=== PATIENT | female | born 1995 | race Caucasian/White ===

== ENCOUNTER 2017-06-24 21:23 | Emergency (ER) | payer OTHER ==
[~2017-06-24] VITALS: Ht 167.6 cm; Wt 75.2 kg
[~2017-06-24 21:23] MED LIST: FERR240T9 PO; PREN-39 PO
[2017-06-24 21:28] VITALS: Ht 167.6 cm; Wt 75.2 kg
--- NOTE | 2017-06-24 22:10 | ERD ---
ER Documentation Chief Complaint Chief Complaint 3 wks , vag bleeding today, pelvic pain HPI 22-year-old female, at approximately 8 weeks by uncertain LMP 04/29/17, presents to the emergency department complaining of 1 day of mild vaginal spotting. Denies abdominal pain, no dysuria, no history of trauma. No care, history provided by patient. ROS SYSTEMIC symptoms: no fever, chills, no night sweats, no weight loss EYE symptoms: No blurred vision, no eye discharge OTOLARYNGEAL symptoms: No hearing loss. No ear pain, no sore throat CARDIOVASCULAR symptoms: No chest pain or discomfort, no palpitations. PULMONARY symptoms: No dyspnea, no cough, no wheezing. GASTROINTESTINAL symptoms: No abdominal pain, no nausea, no vomiting, no diarrhea MUSCULOSKELETAL symptoms: No arthralgias, no muscle aches. NEUROLOGY symptoms: No confusion, no syncope, no numbness or tingling. SKIN: No rashes Medications Home Meds Active Scripts Nitrofurantoin Monohyd Macrocr* (Macrobid*) 100 Mg Capsr, 100 MG PO BID for 7 Days, CAP Prov:KENDRA CARVAJAL MD 06/24/17 Reported Medications Vits W-Ca,Fe,Fa(<1MG) ( Vitamins) 1 Tab Tablet, 1 TAB PO DAILY 09/02/14 Ferrous Gluconate (Iron) 1 Tab Tablet, 1 TAB PO DAILY 09/02/14 Allergies Allergies: Coded Allergies: No Known Drug Allergies (Verified Allergy, Unknown, 10/04/14) PMhx/Soc History of Surgery: No Anesthesia Reaction: No Hx Neurological Disorder: No Hx Respiratory Disorders: No Hx Cardiac Disorders: No Hx Psychiatric Problems: No Hx Miscellaneous Medical Probl: No Hx Alcohol Use: No Hx Substance Use: No Hx Tobacco Use: No Smoking Status: Never smoker Physical Exam Vitals Vital Signs Date Time Temp Pulse Resp B/P Pulse Ox O2 Delivery O2 Flow Rate FiO2 06/24/17 21:28 97.8 81 20 123/72 98 Physical Exam Patient is in no acute distress, vital signs stable. Alert and fully oriented. EYES: PERRLA, EOMI, Sclera and conjunctiva appear normal. EARS: Canals clear, tympanic membranes WNL THROAT: Normal oropharynx. NECK: Supple, No lymphadenopathy. Full ROM without pain or tenderness. HEART: RRR, no rubs, murmurs, clicks or gallops. LUNGS: Clear to auscultation. ABDOMEN: Soft, non-tender without masses or hepatosplenomegaly. EXTREMITIES: No edema bilaterally. BACK: Full ROM, no deformity, normal back exam NEURO: Cranial nerves grossly intact, no motor or sensory deficit Result Diagram: 06/24/172219 Results 24 hrs Laboratory Tests Test 06/24/17 22:02 06/24/17 22:20 Urine Color YELLOW Urine Clarity CLEAR Urine pH 5.0 Urine Specific [place] 1.035 Urine Ketones TRACEmg/dL Urine Nitrite POSITIVEmg/dL Urine Bilirubin NEGATIVEmg/dL Urine Urobilinogen 2+mg/dL Urine Leukocyte Esterase TRACELeu/ul Urine Microscopic RBC 4/HPF Urine Microscopic WBC 2/HPF Urine Squamous Epithelial Cells FEW/HPF Urine Bacteria MANY/HPF Urine Mucus MODERATE/HPF Urine Hemoglobin 2+mg/dL Urine Glucose NEGATIVEmg/dL Urine Total Protein NEGATIVEmg/dl White Blood Count 11.210^3/ul Red Blood Count 4.5410^6/ul Hemoglobin 12.9g/dl Hematocrit 37.6% Mean Corpuscular Volume 82.8fl Mean Corpuscular Hemoglobin 28.4pg Mean Corpuscular Hemoglobin Concent 34.3g/dl Red Cell Distribution Width 13.3% Platelet Count 72443^3/UL Mean Platelet Volume 10.1fl Neutrophils % 63.0% Lymphocytes % 28.9% Monocytes % 6.5% Eosinophils % 0.9% Basophils % 0.4% Nucleated Red Blood Cells % 0.0/100WBC Neutrophils # 7.110^3/ul Lymphocytes # 3.310^3/ul Monocytes # 0.710^3/ul Eosinophils # 0.110^3/ul Basophils # 0.010^3/ul Nucleated Red Blood Cells # 0.010^3/ul Beta HCG, Quantitative 22981.0mIU/ml [place] [address] Radiology Main Line: [phone] DIAGNOSTIC IMAGING REPORT Patient: ASHISH SHUKLA : 1995 Age: 22 Sex: F MR #: [id number] DOS: 06/24/172204 Ordering MD: KENDRA CARVAJAL MD Location: [facility] Room/Bed: PROCEDURE: US OB. CLINICAL INDICATION: Vaginal bleeding. Positive TECHNIQUE: Transabdominal and transvaginal views of the pelvis are available for review. COMPARISON: No relevant prior studies are available for comparison. FINDINGS: Uterus: No evidence of masses and normal in size. Endometrial cavity: Intrauterine gestational sac, yolk sac and pole are present with the following information: [place]-rump length: 0.60 cm heart rate: 129 bpm Gestational sac: 2.19 cm Ultrasound estimated gestational age: 6 weeks 5 days No evidence of subchorionic hemorrhage Right ovary/adnexa: The ovary is not visualized. There is no evidence of adnexal mass or free fluid. Left ovary/adnexa: Ovarian size normal estimated at 4 x 2.7 x 2.6 cm. Likely a corpus luteum cyst with internal debris or hemorrhage is estimated at 1.7 x 1.5 cm. No adnexal mass lesion is seen. Cul-de-sac: There is no free fluid. RPTAT:HJJR IMPRESSION: 1. Single viable intrauterine with an estimated gestational age of 6 weeks 5 days, the estimated date of delivery 02/12/2018. 2. No evidence of subchorionic hemorrhage to explain the provided history. Physician Randy Date Time Electronically viewed and signed by Seoku Frank Physician on 06/24/2017 23:21 JR/ CC: KENDRA CARVAJAL MD Procedures/MDM 22y/o female patient at approximately 8 weeks weeks per last menstrual period, presents to the ED c/o vaginal spotting for 1 day. Vital signs stable, Physical exam unremarkable. Differential diagnosis include but not limited to: UTI, threatening , incomplete versus complete , ectopic , physiologic implantation bleeding, molar . Pertinent Data: Labs: CBC: normal UA: Nitrates (+) OB US: 1. Single viable intrauterine with an estimated gestational age of 6 weeks 5 days, the estimated date of delivery 02/12/2018. 2. No evidence of subchorionic hemorrhage to explain the provided history. Physical examination and clinical presentation most likely consistent with UTI and threatening . During the ED course the patient remained hemodynamically stable and asymptomatic. Results and clinical impression discussed with patient who agrees with management. The patient is stable to be treated outpatient and will be discharged home with close monitoring and follow-up in 2 days with her primary physician. Bed rest and pelvic rest recommended until further medical evaluation. The patient was instructed regarding the outcomes and the potential complications like severe bleeding and . If the patient presents severe bleeding or pain, she was instructed to return to the hospital immediately. Disclaimer: Inadvertent spelling and grammatical errors are likely due to EHR/ dictation software use and do not reflect on the overall quality of patient care. Also, please note that the electronic time recorded on this note does not necessarily reflect the actual time of the patient encounter. Departure Diagnosis: Primary Impression: Vaginal bleeding in patient at less than 20 weeks gestation Additional Impression: UTI (urinary tract infection) Condition: Stable Additional Instructions: Call your primary care doctor TOMORROW for an appointment during the next 1-2 days. See the doctor sooner or return here if your condition worsens before your appointment time. Thank you very much for allowing us to participate in your care. Your health and safety is our top priority at [facility]. Have prescriptions filled and follow precisely the directions on the label. Follow-up with primary care provider during the next 4 days and bring all the information and medications prescribed. If illness has not improved in 2 days, then make an appointment with primary care provider. If the provider is unavailable, return to the Emergency Department immediately. KENDRA CARVAJAL MD Jun 24, 2017 22:10
[2017-06-24 22:53] LABS: BASOPHILS % 0.4 % (0.0-2.0); EOSINOPHILS # 0.1 10^3/ul (0.0-0.5); EOSINOPHILS % 0.9 % (0.0-7.0); HEMATOCRIT 37.6 % (37.0-47.0); HEMOGLOBIN 12.9 g/dl (12.0-16.0); LYMPHOCYTES # 3.3 10^3/ul (0.8-2.9); LYMPHOCYTES % 28.9 % (15.0-51.0); MEAN CORPUSCULAR HEMOGLOBIN 28.4 pg (29.0-33.0); MEAN CORPUSCULAR HGB CONC 34.3 g/dl (32.0-37.0); MEAN CORPUSCULAR VOLUME 82.8 fl (82.0-101.0); MEAN PLATELET VOLUME 10.1 fl (7.4-10.4); MONOCYTE # 0.7 10^3/ul (0.3-0.9); MONOCYTES % 6.5 % (0.0-11.0); NEUTROPHIL # 7.1 10^3/ul (1.6-7.5); PLATELET COUNT 316 10^3/UL (140-415); RED BLOOD COUNT 4.54 10^6/ul (4.20-5.40); RED CELL DISTRIBUTION WIDTH 13.3 % (11.5-14.5); WHITE BLOOD COUNT 11.2 10^3/ul (4.8-10.8)
[2017-06-24 23:03] LABS: ADD UMIC YES; UR ASCORBIC ACID NEGATIVE (NEGATIVE); UR BACTERIA MANY /HPF (NONE SEEN); UR BILIRUBIN (Dip) NEGATIVE (NEGATIVE); UR BLOOD (Dip) 2+ mg/dL (NEGATIVE); UR CLARITY CLEAR (CLEAR); UR COLOR YELLOW (YELLOW); UR GLUCOSE (Dip) NEGATIVE (NEGATIVE); UR KETONES (Dip) TRACE mg/dL (NEGATIVE); UR LEUKOCYTE ESTERASE (Dip) TRACE Leu/ul (NEGATIVE); UR MUCUS MODERATE /HPF (NONE SEEN); UR NITRITE (Dip) POSITIVE (NEGATIVE); UR RBC 4 /HPF (0-5); UR SPECIFIC GRAVITY (Dip) 1.035 (1.003-1.030); UR SQUAMOUS EPITHELIAL CELL FEW /HPF (FEW); UR TOTAL PROTEIN (Dip) NEGATIVE (NEGATIVE); UR UROBILINOGEN (Dip) 2+ mg/dL (NEGATIVE)
[2017-06-24] MEDS ORDERED: NITR-58 PO (23:20)
--- NOTE | 2017-06-24 23:21 | RADRPT ---
PROCEDURE: US OB. CLINICAL INDICATION: Vaginal bleeding. Positive TECHNIQUE: Transabdominal and transvaginal views of the pelvis are available for review. COMPARISON: No relevant prior studies are available for comparison. FINDINGS: Uterus: No evidence of masses and normal in size. Endometrial cavity: Intrauterine gestational sac, yolk sac and pole are present with the foll owing information: [place]-rump length:0.60 cm heart rate:129 bpm Gestational sac:2.19 cm Ultrasound estimated gestational age:6 weeks 5 days No evidence of subchorionic hemorrhage Right ovary/adnexa: The ovary is not visualized. There is no evidence of adnexal mass or free flui d. Left ovary/adnexa: Ovarian size normal estimated at 4 x 2.7 x 2.6 cm. Likely a corpus luteum cyst w ith internal debris or hemorrhage is estimated at 1.7 x 1.5 cm. No adnexal mass lesion is seen. Cul-de-sac: There is no free fluid. RPTAT:HJJR IMPRESSION: 1. Single viable intrauterine with an estimated gestational age of 6 weeks 5 days, the es timated date of delivery 02/12/2018. 2. No evidence of subchorionic hemorrhage to explain the provided history. Physician Randy Date Time Electronically viewed and signed by Physician Randy on 06/24/2017 23:21 /
== END 2017-06-25 00:01 | disposition home or self-care (01) ==
LOC: FTE 21:23
DX: O20.9 Hemorrhage in early pregnancy, unspecified (principal); O23.41 Unspecified infection of urinary tract in pregnancy, first trimester; R10.2 Pelvic and perineal pain; Z3A.01 Less than 8 weeks gestation of pregnancy
CPT/HCPCS: 36415; 76801; 76817; 81001; 84702; 85025; 86900; 86901; 87086; Z7502

== ENCOUNTER 2017-11-19 11:48 | Outpatient (CLI) | END 2017-11-19 16:12 | disposition home or self-care (01) ==

== ENCOUNTER 2017-11-21 12:56 | Outpatient (CLI) | END 2017-11-21 14:55 | disposition home or self-care (01) ==

== ENCOUNTER 2017-11-22 15:20 | Inpatient (IN) | END 2017-11-25 11:50 | disposition home or self-care (01) | DRG 782 ==

== ENCOUNTER 2018-01-04 07:32 | Outpatient (CLI) | END 2018-01-04 09:59 | disposition home or self-care (01) ==

== ENCOUNTER → 2018-01-27 | Outpatient (CLI) | END | disposition home or self-care (01) ==

== ENCOUNTER 2018-01-29 13:02 | Inpatient (IN) | END 2018-01-31 14:30 | disposition home or self-care (01) | DRG 775 ==

== ENCOUNTER 2018-12-04 19:02 | Emergency (ER) | payer OTHER ==
[~2018-12-04] VITALS: Ht 170.2 cm; Wt 83.3 kg
[2018-12-04 19:15] VITALS: BP 140/70; PULSE 5; RESP 18; Ht 170.2 cm; Wt 83.3 kg
--- NOTE | 2018-12-04 20:25 | ERD ---
ER Documentation Chief Complaint Chief Complaint headache/cough/runny nose x 1 week HPI 23-year-old female, presents to the emergency department, complaining of 1 week with worsening of nasal congestion, frontal sinus pressure, dental pain and subjective fever. The patient reports upper respiratory symptoms for more than 4 weeks. She has been taking knbe-uwe-zxdopiy medication without improvement of the symptoms. ROS All systems reviewed and are negative except as per history of present illness. Medications Home Meds Active Scripts Promethazine Hcl* (Promethazine Hcl* Syrup) 6.25 Mg/5 Ml Syrup, 6.25 MG PO Q6H PRN for COUGH, #60 ML Prov:KENDRA CARVAJAL MD 12/04/18 Ibuprofen* (Motrin*) 600 Mg Tab, 600 MG PO Q8, #20 TAB Prov:KENDAR CARVAJAL MD 12/04/18 Amoxicillin* (Amoxicillin*) 500 Mg Cap, 500 MG PO TID for 10 Days, CAP Prov:KENDRA CARVAJAL MD 12/04/18 Allergies Allergies: Coded Allergies: No Known Drug Allergies (Verified Allergy, Unknown, 11/29/17) PMhx/Soc Medical and Surgical Hx: pt denies Medical Hx, pt denies Surgical Hx History of Surgery: No Anesthesia Reaction: No Hx Neurological Disorder: No Hx Respiratory Disorders: No Hx Cardiac Disorders: No Hx Psychiatric Problems: No Hx Miscellaneous Medical Probl: No Hx Alcohol Use: No Hx Substance Use: No Hx Tobacco Use: No Smoking Status: Never smoker FmHx Family History: No diabetes, No coronary disease Physical Exam Vitals Vital Signs Date Temp Pulse Resp B/P (MAP) Pulse Ox O2 O2 Flow FiO2 Time Delivery Rate 12/04/18 99.0 5 18 140/70 97 19:15 (93) Physical Exam Patient alert, oriented, vital signs stable. HEAD: Normocephalic, atraumatic, frontal and maxillary tenderness. EYES: PERRLA, EOMI, Sclera and conjunctiva appear normal. NOSE: Bulging nasal mucosa with greenish rhinorrhea. EARS: Canals clear, tympanic membranes erythematous, worse on the left . MOUTH: normal lips and tongue, no oral lesions. THROAT: Erythematous oropharynx, no tonsillar exudates. NECK: Supple, No lymphadenopathy. Full ROM without pain or tenderness. HEART: RRR, no rubs, murmurs, clicks or gallops. LUNGS: Clear to auscultation. ABDOMEN: Soft, non-tender without masses or hepatosplenomegaly. EXTREMITIES: No edema bilaterally. BACK: Full ROM, no deformity, normal back exam NEURO: Cranial nerves grossly intact, no motor or sensory deficit SKIN: No rashes, no petechia. Results 24 hrs Current Medications Medications Dose Sig/Maria Esther Start Time Status Last (Trade) Ordered Route PRN Stop Time Admin Dose Reason Admin 650 mg ONCE ONCE 12/04/18 DC 12/04/18 Acetaminophen PO 20:30 12/04/18 20:33 (Tylenol 20:31 Tab) Ibuprofen 400 mg ONCE ONCE 12/04/18 DC 12/04/18 (Motrin) PO 20:30 12/04/18 20:33 20:31 Procedures/MDM Vital signs stable, differential diagnosis include but not limited to: Upper versus lower respiratory infection, bacterial/viral/fungal etiology. Asthma, pneumonitis, allergies, less likely meningitis. Low suspicion for acute systemic infection. Physical examination and clinical presentation consistent most likely with chronic sinusitis. During the ED course the patient remained stable, no new complaints. Treatment options and clinical impression discussed with the patient who agrees with management. The patient is stable to be treated outpatient and will be discharged home with a Rx for antibiotics and anti-inflammatories. some side effects of prescribed medications (headache, rash, nausea, vomiting, diarrhea, hypertension, interactions with other medications) were reviewed. The patient was instructed to follow up with the primary care provider in the next 48h. If symptoms persist, worsen or new symptoms develop, then patient should return to the ED immediately. Disclaimer: Inadvertent spelling and grammatical errors are likely due to EHR/dictation software use and do not reflect on the overall quality of patient care. Also, please note that the electronic time recorded on this note does not necessarily reflect the actual time of the patient encounter. Departure Diagnosis: Primary Impression: Chronic sinusitis Condition: Stable Additional Instructions: Thank you very much for allowing us to participate in your care. Your health and safety is our top priority at [facility]. The evaluation in the emergency department has been done to rule out an acute emergency, therefore, chronic conditions like malignancy or other diseases have not been evaluated; therefore, you need to follow up with a primary care provi bisi in the next 48h. If symptoms persist, worsen or new symptoms develop, then patient should return to the ED immediately. Call your primary care doctor TOMORROW for an appointment during the next 2-4 days and bring all the information provided. Have prescriptions filled and follow precisely the directions on the label. If the symptoms get worse and your provider is unavailable, return to the Emergency Department immediately. KENDRA CARVAJAL MD December 04, 2018 20:25
[2018-12-04] MEDS ORDERED: IBUP-1542 PO (20:29)
[2018-12-04] MEDS ORDERED: PROM6.2515 PO (20:29)
[2018-12-04] MEDS ORDERED: AMOX500C2 PO (20:29)
[2018-12-04] MEDS ORDERED: ACETAMINOPHEN 325 MG TAB PO ONE (20:30)
[2018-12-04] MEDS ORDERED: IBUPROFEN 200 MG TAB PO ONE (20:30)
== END 2018-12-04 20:38 | disposition home or self-care (01) ==
LOC: FTE 19:02
DX: J32.9 Chronic sinusitis, unspecified (principal)
CPT/HCPCS: Z7502; Z7610; 99283

== ENCOUNTER 2019-02-03 12:34 | Emergency (ER) | payer OTHER ==
[~2019-02-03] VITALS: Ht 167.6 cm; Wt 81.1 kg
[~2019-02-03 12:34] MED LIST changes: +AMOX500C2 PO; -FERR240T9 PO; +IBUP-1542 PO; -PREN-39 PO; +PROM6.2515 PO
[2019-02-03 13:14] VITALS: BP 146/83; PULSE 81; RESP 18; Ht 167.6 cm; Wt 81.1 kg
[2019-02-03] MEDS ORDERED: ACETAMINOPHEN 500 MG TAB PO STA (13:56)
--- NOTE | 2019-02-03 14:44 | ERD ---
ER Documentation Chief Complaint Chief Complaint left side abdominal pain radiating to back x2wks HPI 23-year-old female presented with complaint of lower left quadrant abdominal pain radiating to the back for the past 2 weeks. In addition patient states that she began vomiting last night. Last episode of vomiting was at 3 AM. Vomitus described as nonbilious nonbloody. Patient denies any diarrhea, hematochezia, possibility of , fevers, chills, dysuria, hematuria. ROS All systems reviewed and are negative except as per history of present illness. Medications Home Meds Active Scripts Naproxen* (Naprosyn*) 500 Mg Tablet, 500 MG PO BID PRN for PAIN AND/OR INFLAMMATION, #30 TAB Prov:JOSE MARIA ARMAS PA-C 02/11/19 Ondansetron (Ondansetron Odt) 4 Mg Tab.rapdis, 4 MG PO Q6H PRN for NAUSEA AND/OR VOMITING, #10 TAB Prov:JOSE MARIA ARMAS PA-C 02/11/19 Hydrocodone/Acetaminophen ([place] 5-325 Tablet) 1 Each Tablet, 1 TAB PO Q6H PRN for PAIN, #7 TAB Prov:JOSE MARIA ARMAS PA-C 02/11/19 Hydrocodone/Acetaminophen ([place] 5-325 Tablet) 1 Each Tablet, 1 TAB PO Q6H PRN for PAIN, #15 TAB Prov:CESAR NINA 02/03/19 Ibuprofen* (Motrin*) 600 Mg Tab, 600 MG PO Q6, #30 TAB Prov:CESAR NINA 02/03/19 Promethazine Hcl* (Promethazine Hcl* Syrup) 6.25 Mg/5 Ml Syrup, 6.25 MG PO Q6H P RN for COUGH, #60 ML Prov:KENDRA CARVAJAL MD 12/04/18 Ibuprofen* (Motrin*) 600 Mg Tab, 600 MG PO Q8, #20 TAB Prov:KENDRA CARVAJAL MD 12/04/18 Amoxicillin* (Amoxicillin*) 500 Mg Cap, 500 MG PO TID for 10 Days, CAP Prov:KENDRA CARVAJAL MD 12/04/18 Allergies Allergies: Coded Allergies: No Known Drug Allergies (Verified Allergy, Unknown, 11/29/17) PMhx/Soc History of Surgery: No Anesthesia Reaction: No Hx Neurological Disorder: No Hx Respiratory Disorders: No Hx Cardiac Disorders: No Hx Psychiatric Problems: No Hx Miscellaneous Medical Probl: No Hx Alcohol Use: No Hx Substance Use: No Hx Tobacco Use: No FmHx Family History: No diabetes, No coronary disease, No other Physical Exam Vitals Physical Exam Const: No acute distress Head: Atraumatic Eyes: Normal Conjunctiva ENT: Normal External Ears, Nose and Mouth. Neck: Full range of motion. No meningismus. Resp: Clear to auscultation bilaterally Cardio: Regular rate and rhythm, no murmurs Abd: Tenderness to palpation in the left quadrant. Otherwise soft and nondistended abdomen. Negative McBurney's. Skin: No petechiae or rashes Back: No midline or flank tenderness Ext: No cyanosis, or edema Neur: Awake and alert Psych: Normal Mood and Affect Results 24 hrs Laboratory Tests Test 02/03/19 14:42 02/03/19 14:45 White Blood Count 7.0 10^3/ul Red Blood Count 4.60 10^6/ul Hemoglobin 12.6 g/dl Hematocrit 37.6 % Mean Corpuscular Volume 81.7 fl Mean Corpuscular Hemoglobin 27.4 pg Mean Corpuscular Hemoglobin Concent 33.5 g/dl Red Cell Distribution Width 13.7 % Platelet Count 369 10^3/UL Mean Platelet Volume 10.3 fl Immature Granulocytes % 0.300 % Neutrophils % 59.1 % Lymphocytes % 32.6 % Monocytes % 7.3 % Eosinophils % 0.4 % Basophils % 0.3 % Nucleated Red Blood Cells % 0.0 /100WBC Immature Granulocytes # 0.020 10^3/ul Neutrophils # 4.2 10^3/ul Lymphocytes # 2.3 10^3/ul Monocytes # 0.5 10^3/ul Eosinophils # 0.0 10^3/ul Basophils # 0.0 10^3/ul Nucleated Red Blood Cells # 0.0 10^3/ul Urine Color YELLOW Urine Clarity SLIGHTLY CLOUDY Urine pH 7.0 Urine Specific [place] 1.026 Urine Ketones NEGATIVE mg/dL Urine Nitrite NEGATIVE mg/dL Urine Bilirubin NEGATIVE mg/dL Urine Urobilinogen NEGATIVE mg/dL Urine Leukocyte Esterase NEGATIVE [place]/ul Urine Microscopic RBC 21 /HPF Urine Microscopic WBC 1 /HPF Urine Squamous Epithelial Cells FEW /HPF Urine Mucus MODERATE /HPF Urine Hemoglobin 2+ mg/dL Urine Glucose NEGATIVE mg/dL Urine Total Protein NEGATIVE mg/dl Sodium Level 143 mmol/L Potassium Level 4.3 mmol/L Chloride Level 107 mmol/L Carbon Dioxide Level 27 mmol/L Anion Gap 9 Blood Urea Nitrogen 11 mg/dl Creatinine 0.55 mg/dl Est Glomerular Filtrat Rate mL/min > 60 mL/min Glucose Level 97 mg/dl Calcium Level 9.5 mg/dl Total Bilirubin 0.5 mg/dl Direct Bilirubin 0.00 mg/dl Indirect Bilirubin 0.5 mg/dl Aspartate Amino Transf (AST/SGOT) 15 IU/L Alanine Aminotransferase (ALT/SGPT) 22 IU/L Alkaline Phosphatase 104 IU/L Total Protein 7.8 g/dl Albumin 4.5 g/dl Globulin 3.30 g/dl Albumin/Globulin Ratio 1.36 Lipase 86 U/L POC Beta HCG, Qualitative NEGATIVE Current Medications Medications Dose Sig/Maria Esther Start Time Status Last (Trade) Ordered Route PRN Stop Time Admin Dose Reason Admin 1,000 mg ONCE STAT 02/03/19 DC 02/03/19 Acetaminophen PO 13:56 02/03/19 14:47 (Tylenol 13:59 Tab) Procedures/MDM DIAGNOSTIC IMAGING REPORT Patient: ASHISH SHUKLA : 1995 Age: 23 Sex: F MR #: [id number] DOS: 02/03/19 1359 Ordering MD: CESAR NINA Location: [facility] Room/Bed: PROCEDURE: CT Abdomen and Pelvis without intravenous contrast. CLINICAL INDICATION: Abdominal Pain . TECHNIQUE: CT scan of the abdomen and pelvis without intravenous contrast was performed on a multi-detector high-resolution CT scanner. Coronal and sagittal reformatted images were obtained from the axial source images. DICOM images are available. CTDIvol 17.34 mGy, and DLP 978.59 mGy.cm. One or more of the following dose reduction techniques were used: - Automated exposure control. - Adjustment of the mA and/or kV according to patient size. - Use of iterative reconstruction technique. COMPARISON: US PELVIS 02/03/2019 FINDINGS: In the absence of intravenous contrast, the study constitutes a limited assessment of the solid organs, bowel and vessels. Lower thorax: Normal. Liver: Normal. Biliary: Gallbladder is normal. No intrahepatic or extrahepatic biliary dilatation. Pancreas: Normal. Spleen: Normal. Adrenal Glands: Normal. Urinary: There are two punctate 1-2 mm nonobstructive stones in the lower pole left kidney. No hydroureteronephrosis. Bladder is unremarkable. Gastrointestinal: Normal. Appendix is identified and appears unremarkable. Lymph nodes: No enlarged abdominal or pelvic lymph nodes. Vascular: Normal. Peritoneum/mesentery: No free fluid or free air. Tiny fat containing periumbilical hernia. Reproductive organs: There is an ovoid 7.9 x 7.6 x 6.1 cm cystic structure posterior to the uterus. The uterus is unremarkable. Musculoskeletal: No suspicious osseous lesions. IMPRESSION: 1. Two punctate nonobstructing stones in the lower pole left kidney. No hydroureteronephrosis. 2. Large 7.9 cm cystic structure posterior to the uterus, likely corresponds to the complex left adnexal cystic lesion seen on recent prior pelvic ultrasound. Given the large size, follow-up MRI pelvis with contrast and/or surgical evaluation should be considered. RPTAT: AA Physician Yue Date Time Electronically viewed and signed by Physician Yue on 02/03/2019 15:39 HtN/ CC: CESAR NINA [id number] DIAGNOSTIC IMAGING REPORT Patient: ASHISH SHUKLA : 1995 Age: 23 Sex: F [id number] DOS: 02/03/19 1359 Ordering MD: CESAR NINA Location: [facility] Room/Bed: PROCEDURE: US Pelvis. CLINICAL INDICATION: pelvic pain TECHNIQUE: Multiple sonographic images of the pelvis were obtained utilizing transabdominal and endovaginal technique. The images were reviewed on a PACS workstation. COMPARISON: None. FINDINGS: The uterus is normal in size with a normal appearance of the myometrium. The uterus measures 7.2 x 4.0 x 5.1 cm. The endometrial stripe is homogeneous in appearance and has the thickness of 8 mm. The right ovary measures 2.6 x 1.8 x 2.1 cm. There is Doppler flow in the right ovary. The left ovary measures 8.7 x 6.0 x 7.6 cm. The left ovary has been completely replaced by a large cystic structure with echogenic debris measuring 8.5 x 5.4 x 7.2 cm. There is flow noted in the periphery of the left ovary. No free fluid is present within the pelvis. RPTAT: AA IMPRESSION: Markedly enlarged left ovary with a large complex cystic structure with echogenic debris, which measures 8.5 cm. The findings may represent a large hemorrhagic cyst versus endometrioma. .Brandon Peguero MD, MD Date Time Electronically viewed and signed by .Brandon Peguero MD, on 02/03/2019 15:07 .S/ CC: CESAR NINA [id number] MDM: Given patient's physical and history, decision was made to do abdomen and pelvic CT as well as pelvic ultrasound. CT only showed ovarian cyst. CT advise follow-up MRI, discussed case with supervising physician he stated that MRI wou ld not need to be done in the ER but can be done an outpatient basis. Patient was advised of this and I told her she need to follow-up with her OB right away due to the size of the cyst. Patient understood and agreed to do so. There is no clinical evidence this patient has appendicitis. There is no free fluid in the pelvis I do not have suspicion for ruptured cyst time. I have low suspicion for ectopic , ovarian torsion, PID, tubo-ovarian abscess, uterine prolapse, ovarian cancer, uterine cancer, nephrolithiasis, pyelonephritis, appendicitis, diverticulitis, bowel obstruction, perirectal abscess. At this time, patient is stable for discharge and outpatient management. I have instructed the patient to follow-up with his/her primary care physician in 1-2 days. I have discussed with the patient the possibility of needing to see a specialist for further workup and imaging studies if symptoms persist. I have instructed the patient to promptly return to the ER for any new or worsening symptoms including but not limited to increased pain, fever, nausea, vomiting, weakness or LOC. The patient and/or family expressed understanding of and agreement with this plan. All questions were answered. Home care instructions were provided. [Communication with patient both during the exam and instructions for discharge were performed with using a end finder forming department . Patient gave verbal confirmation to the practitioner, through the end finder forming department, that they understood everything that was being said to them.] DISCLAIMER: Inadvertent spelling and grammatical errors are likely due to EHR/dictation software use and do not reflect on the overall quality of patient care. Also, please note that the electronic time recorded on this note does not necessarily reflect the actual time of the patient encounter. Departure Diagnosis: Primary Impression: Ovarian cyst Condition: Stable CESAR NINA Feb 03, 2019 14:44
[2019-02-03] MEDS ORDERED: HYDR-4011 PO (15:44)
[2019-02-03] MEDS ORDERED: IBUP-1542 PO (15:44)
== END 2019-02-03 15:53 | disposition home or self-care (01) ==
LOC: FTE 12:34
DX: N83.202 Unspecified ovarian cyst, left side (principal); R10.2 Pelvic and perineal pain
CPT/HCPCS: 74176; 76830; 76856; 80053; 81001; 81025; 83690; 85025; Z7610; 36415

== ENCOUNTER 2019-02-11 13:04 | Emergency (ER) | payer OTHER ==
[~2019-02-11] VITALS: Ht 167.6 cm; Wt 81.5 kg
[~2019-02-11 13:04] MED LIST changes: +HYDR-4011 PO
[2019-02-11 13:19] VITALS: BP 123/85; PULSE 85; RESP 18; Ht 167.6 cm; Wt 81.5 kg
[2019-02-11] MEDS ORDERED: HYDR-4011 PO (15:10)
[2019-02-11] MEDS ORDERED: ONDA4TAB14 PO (15:10)
[2019-02-11] MEDS ORDERED: NAPR-985 PO (15:10)
--- NOTE | 2019-02-12 07:44 | ERD ---
ER Documentation Chief Complaint Chief Complaint lt lower abd pain x 1 week HPI 23-year-old female presenting with abdominal pain x1 week. Patient describes it as a flank pain worse with movement. Patient took ibuprofen and [place] with mild alleviation. Feels nauseous but no vomiting or diarrhea. No fevers. No vaginal bleeding. Denies medical problems. NKDA. Surgical history denies. Social history denies ROS All systems reviewed and are negative except as per history of present illness. Medications Home Meds Active Scripts Naproxen* (Naprosyn*) 500 Mg Tablet, 500 MG PO BID PRN for PAIN AND/OR INFLAMMATION, #30 TAB Prov:JOSE MARIA ARMAS PA-C 02/11/19 Ondansetron (Ondansetron Odt) 4 Mg Tab.rapdis, 4 MG PO Q6H PRN for NAUSEA AND/OR VOMITING, #10 TAB Prov:JOSE MARIA ARMAS PA-C 02/11/19 Hydrocodone/Acetaminophen ([place] 5-325 Tablet) 1 Each Tablet, 1 TAB PO Q6H PRN for PAIN, #7 TAB Prov:JOSE MARIA ARMAS PA-C 02/11/19 Hydrocodone/Acetaminophen ([place] 5-325 Tablet) 1 Each Tablet, 1 TAB PO Q6H PRN for PAIN, #15 TAB Prov:CESAR NINA 02/03/19 Ibuprofen* (Motrin*) 600 Mg Tab, 600 MG PO Q6, #30 TAB Prov:CESAR NINA 02/03/19 Promethazine Hcl* (Promethazine Hcl* Syrup) 6.25 Mg/5 Ml Syrup, 6.25 MG PO Q6H PRN for COUGH, #60 ML Prov:KENDRA CARVAJAL MD 12/04/18 Ibuprofen* (Motrin*) 600 Mg Tab, 600 MG PO Q8, #20 TAB Prov:KENDRA CARVAJAL MD 12/04/18 Amoxicillin* (Amoxicillin*) 500 Mg Cap, 500 MG PO TID for 10 Days, CAP Prov:KENDRA CARVAJAL MD 12/04/18 Allergies Allergies: Coded Allergies: No Known Drug Allergies (Verified Allergy, Unknown, 11/29/17) PMhx/Soc Medical and Surgical Hx: pt denies Medical Hx, pt denies Surgical Hx History of Surgery: No Anesthesia Reaction: No Hx Neurological Disorder: No Hx Respiratory Disorders: No Hx Cardiac Disorders: No Hx Psychiatric Problems: No Hx Miscellaneous Medical Probl: No Hx Alcohol Use: No Hx Substance Use: No Hx Tobacco Use: No Smoking Status: Never smoker FmHx Family History: No diabetes, No coronary disease, No other Physical Exam Vitals Vital Signs Date Temp Pulse Resp B/P (MAP) Pulse Ox O2 O2 Flow FiO2 Time Delivery Rate 02/11/19 98.1 85 18 123/85 99 13:19 (98) Physical Exam GENERAL: The patient is well-appearing, well-nourished, in no acute distress CHEST: Clear to auscultation bilaterally. There are no rales, wheezes or rhonchi. HEART: Regular rate and rhythm. No murmurs, clicks, rubs or gallops. No S3 or S4. ABDOMEN:Soft, nontender and nondistended. Good bowel sounds. No rebound or guarding. No gross peritonitis. No gross organomegaly or masses. BACK: NO CVAT Result Diagram: 02/11/19 1353 02/11/19 1353 Results 24 hrs Laboratory Tests Test 02/11/19 13:49 02/11/19 13:53 02/11/19 13:55 Urine Color YELLOW Urine Clarity SLIGHTLY CLOUDY Urine pH 5.0 Urine Specific [place] 1.026 Urine Ketones NEGATIVE mg/dL Urine Nitrite NEGATIVE mg/dL Urine Bilirubin NEGATIVE mg/dL Urine Urobilinogen NEGATIVE mg/dL Urine Leukocyte Esterase TRACE [place]/ul Urine Microscopic RBC 5 /HPF Urine Microscopic WBC 3 /HPF Urine Squamous Epithelial Cells FEW /HPF Urine Mucus MODERATE /HPF Urine Hemoglobin 2+ mg/dL Urine Glucose NEGATIVE mg/dL Urine Total Protein NEGATIVE mg/dl White Blood Count 7.8 10^3/ul Red Blood Count 4.95 10^6/ul Hemoglobin 13.5 g/dl Hematocrit 41.7 % Mean Corpuscular Volume 84.2 fl Mean Corpuscular Hemoglobin 27.3 pg Mean Corpuscular 32.4 g/dl Hemoglobin Concent Red Cell Distribution Width 13.5 % Platelet Count 357 10^3/UL Mean Platelet Volume 10.1 fl Immature Granulocytes % 0.100 % Neutrophils % 66.7 % Lymphocytes % 27.5 % Monocytes % 4.9 % Eosinophils % 0.5 % Basophils % 0.3 % Nucleated Red Blood Cells % 0.0 /100WBC Immature Granulocytes # 0.010 10^3/ul Neutrophils # 5.2 10^3/ul Lymphocytes # 2.2 10^3/ul Monocytes # 0.4 10^3/ul Eosinophils # 0.0 10^3/ul Basophils # 0.0 10^3/ul Nucleated Red Blood Cells # 0.0 10^3/ul Sodium Level 145 mmol/L Potassium Level 4.0 mmol/L Chloride Level 105 mmol/L Carbon Dioxide Level 29 mmol/L Anion Gap 11 Blood Urea Nitrogen 14 mg/dl Creatinine 0.56 mg/dl Est Glomerular Filtrat > 60 mL/min Rate mL/min Glucose Level 94 mg/dl Calcium Level 9.7 mg/dl Total Bilirubin 0.7 mg/dl Direct Bilirubin 0.00 mg/dl Indirect Bilirubin 0.7 mg/dl Aspartate Amino 18 IU/L Transf (AST/SGOT) Alanine 23 IU/L Aminotransferase (ALT/SGPT) Alkaline Phosphatase 105 IU/L Total Protein 8.4 g/dl Albumin 4.8 g/dl Globulin 3.60 g/dl Albumin/Globulin Ratio 1.33 Lipase 74 U/L POC Beta HCG, Qualitative NEGATIVE Procedures/MDM DIAGNOSTIC IMAGING REPORT Patient: ASHISH SHUKLA : 1995 Age: 23 Sex: F MR #: [id number] DOS: 02/11/19 1342 Ordering MD: DOUGLAS ARMAS PA-C Location: [facility] Room/Bed: PROCEDURE: US Pelvis. CLINICAL INDICATION: Pelvic pain TECHNIQUE: Transabdominal and transvaginal pelvic ultrasound are performed. COMPARISON: 02/03/2019 FINDINGS: The uterus is normal in echogenicity and anteverted in orientation. The uterus measures 8.9 x 4.8 x 6.1 cm. No focal fibroids are identified. A normal endometrium is identified measuring 6.0 mm. The cervix is normal in appearance. Again noted is a large 8.5 x 6.1 cm lesion replacing the left ovary with uniform low level internal echoes. There is no significant vascularity within this lesion. This may represent a hemorrhagic cyst, endometrioma, or less likely malignant lesion. Further evaluation with MRI is recommended. Within the right ovary, there is a 1.5 cm simple appearing cyst / follicle. Normal Doppler flow is noted of both ovaries. Right ovary measures 3.8 x 2.6 x 1.6 cm and left ovary measures 9.3 x 6.7 cm There is no free fluid in the pelvis IMPRESSION: 1. Again noted is a large 8.5 x 6.1 cm complex cystic lesion replacing the left ovary with low-level internal echoes. This may represent hemorrhagic cyst, endometrioma, or less likely cystic malignancy. Recommend further characterization with MRI. 2. The uterus, endometrium and right ovary unremarkable MDM: 23-year-old female presenting with cyst. Patient has no findings consistent with torsion. She is told to follow-up with [facility]. Patient is told symptoms change or worsen to return immediately to the ER. I will suspicion for other acute abdominal emergency at this time. Patient is discharged with strict ER precautions. I have low suspicion for urinary tract infection or nephrolithiasis. All questions answered at discharge Departure Diagnosis: Primary Impression: Ovarian cyst Condition: Stable Patient Instructions: Ovarian Cyst Referrals: [facility] [place] [id number] [facility] [address] [place] [address] OFFICE FAX [facility] [address] [place] [address] [facility] [address] [place] [address] [address] [facility] [address] [facility] [address] [facility] [address] [address] [facility] [address] [place] [address] [facility] [address] [place] [address] [phone] [facility] [id number] - [place] CORONEL [address], [facility] [address] [address] GUEVARA, [place] [address] [facility]. [address], [place] [address] [address], [facility] [address] [place] [address] Additional Instructions: FOLLOW UP WITH YOUR PRIMARY CARE PHYSICIAN TOMORROW.Return to this facility if you are not improving as expected. JOSE MARIA ARMAS PA-C Feb 12, 2019 07:44
== END 2019-02-11 15:49 | disposition home or self-care (01) ==
LOC: FTE 13:04
DX: N83.201 Unspecified ovarian cyst, right side (principal); R10.2 Pelvic and perineal pain
CPT/HCPCS: 76830; 76856; 80053; 81001; 81025; 83690; 85025